=== PATIENT | female | born 1985 | race Caucasian/White ===

== ENCOUNTER 2017-04-23 08:24 | Emergency (ER) | payer OTHER ==
[~2017-04-23 08:24] MED LIST: COL100 PO; LAC PO; LEVAQUIN750 MG PO; NORCO1 TA2 PO
[2017-04-23 09:30] LABS: BASOPHIL % 0.2 % (0-2); PLATELET COUNT 281 x10^3mcL (130-400); RED CELL DISTRIBUTION WIDTH 12.6 % (11.5-14.5)
[2017-04-23 09:40] LABS: CALCIUM 8.6 mg/dL (8.5-10.1); CARBON DIOXIDE 24.3 mmol/L (21-32); CHLORIDE SERUM 105 mmol/L (98-107); CREATININE SERUM 0.8 mg/dL (0.6-1.0); GFR1 > 60 mL/min; GLUCOSE SERUM 136 mg/dL (74-106); POTASSIUM SERUM 3.8 mmol/L (3.5-5.1); SODIUM SERUM 139 mmol/L (136-145)
[2017-04-23 09:45] LABS: ALBUMIN 3.6 g/dL (3.4-5.0); ALKALINE PHOSPHATASE 81 U/L (46-116); ALT/SGPT 25 U/L (14-59); AST/SGOT 11 U/L (15-37); BILIRUBIN TOTAL 0.27 mg/dL (0.20-1.00); TOTAL PROTEIN, SERUM 7.4 g/dL (6.4-8.2)
[2017-04-23 11:08] VITALS: BP 117/65
== END 2017-04-23 11:08 | disposition home or self-care (01) ==
LOC: ED 08:24
PROVIDERS: Emergency Medicine
DX: N23 Unspecified renal colic (principal)
CPT/HCPCS: J1170; J1885; J2405; J7030

== ENCOUNTER 2018-04-29 19:51 | Emergency (ER) | payer OTHER ==
[~2018-04-29] VITALS: Ht 167.6 cm; Wt 108.9 kg
[2018-04-29 19:58] VITALS: Ht 167.6 cm; Wt 108.9 kg
[2018-04-29 22:12] LABS: BASOPHIL % 0.4 % (0-2); PLATELET COUNT 292 x10^3mcL (130-400); RED CELL DISTRIBUTION WIDTH 13.1 % (11.5-14.5)
[2018-04-29 22:24] LABS: CALCIUM 9.1 mg/dL (8.5-10.1); CARBON DIOXIDE 28.1 mmol/L (21-32); CHLORIDE SERUM 105 mmol/L (98-107); CREATININE SERUM 0.8 mg/dL (0.6-1.0); GFR1 > 60 mL/min; GLUCOSE SERUM 130 mg/dL (74-106); POTASSIUM SERUM 3.7 mmol/L (3.5-5.1); SODIUM SERUM 140 mmol/L (136-145)
[2018-04-29 22:43] VITALS: BP 135/68
== END 2018-04-29 23:23 | disposition home or self-care (01) ==
LOC: ED 19:51
PROVIDERS: Emergency Medicine
DX: H81.10 Benign paroxysmal vertigo, unspecified ear (principal); R11.0 Nausea
CPT/HCPCS: J8597; Q0162

== ENCOUNTER 2018-08-14 09:55 | Emergency (ER) | payer OTHER ==
[~2018-08-14] VITALS: Ht 167.6 cm; Wt 109.8 kg
[2018-08-14 10:16] VITALS: Ht 167.6 cm; Wt 109.8 kg
[2018-08-14 11:28] LABS: BASOPHIL % 0.1 % (0-2); PLATELET COUNT 265 x10^3mcL (130-400); RED CELL DISTRIBUTION WIDTH 12.8 % (11.5-14.5)
[2018-08-14 13:30] VITALS: BP 125/72
== END 2018-08-14 13:30 | disposition home or self-care (01) ==
LOC: ED 09:55
PROVIDERS: Emergency Medicine
DX: M72.2 Plantar fascial fibromatosis (principal); H81.10 Benign paroxysmal vertigo, unspecified ear
CPT/HCPCS: 36415

== ENCOUNTER 2018-10-12 05:24 | Emergency (ER) | payer OTHER ==
[~2018-10-12] VITALS: Ht 165.1 cm; Wt 107.6 kg
[2018-10-12 05:27] VITALS: Ht 165.1 cm; Wt 107.6 kg
[2018-10-12 06:26] LABS: BASOPHIL % 0.4 % (0-2); PLATELET COUNT 294 x10^3mcL (130-400); RED CELL DISTRIBUTION WIDTH 12.5 % (11.5-14.5)
[2018-10-12 06:29] LABS: CALCIUM 8.8 mg/dL (8.5-10.1); CHLORIDE SERUM 106 mmol/L (98-107); CREATININE SERUM 0.8 mg/dL (0.6-1.0); GFR1 > 60 mL/min; GLUCOSE SERUM 125 mg/dL (74-106); POTASSIUM SERUM 3.6 mmol/L (3.5-5.1); SODIUM SERUM 140 mmol/L (136-145)
[2018-10-12 06:35] LABS: ALBUMIN 3.6 g/dL (3.4-5.0); ALKALINE PHOSPHATASE 81 U/L (46-116); ALT/SGPT 28 U/L (14-59); AST/SGOT 8 U/L (15-37); BILIRUBIN TOTAL 0.19 mg/dL (0.20-1.00); TOTAL PROTEIN, SERUM 7.5 g/dL (6.4-8.2)
[2018-10-12 07:31] VITALS: BP 111/69
== END 2018-10-12 07:31 | disposition home or self-care (01) ==
LOC: ED 05:24
PROVIDERS: Emergency Medicine
DX: H81.10 Benign paroxysmal vertigo, unspecified ear (principal)
CPT/HCPCS: J2405; J8597

== ENCOUNTER 2019-08-10 12:42 | Emergency (ER) | payer OTHER ==
[~2019-08-10] VITALS: Ht 165.1 cm; Wt 104.8 kg
[2019-08-10 12:45] VITALS: Ht 165.1 cm; Wt 104.8 kg
[2019-08-10 14:45] LABS: BASOPHIL % 0.2 % (0-2); CALCIUM 8.8 mg/dL (8.5-10.1); CARBON DIOXIDE 25.4 mmol/L (21-32); CHLORIDE SERUM 105 mmol/L (98-107); CREATININE SERUM 0.7 mg/dL (0.6-1.0); GFR1 > 60 mL/min; GLUCOSE SERUM 112 mg/dL (74-106); PLATELET COUNT 259 x10^3mcL (130-400); POTASSIUM SERUM 4.3 mmol/L (3.5-5.1); RED CELL DISTRIBUTION WIDTH 13.1 % (11.5-14.5); SODIUM SERUM 137 mmol/L (136-145)
[2019-08-10 15:09] VITALS: BP 120/69
== END 2019-08-10 15:09 | disposition home or self-care (01) ==
LOC: ED 12:42
PROVIDERS: Emergency Medicine
DX: H81.10 Benign paroxysmal vertigo, unspecified ear (principal)
CPT/HCPCS: J2405; J7030; J8597